=== PATIENT | male | born 2005 | race African-American/Black ===

== ENCOUNTER 2025-10-01 07:42 | Emergency (ER) | payer OTHER ==
[~2025-10-01] VITALS: Ht 180.3 cm; Wt 75.0 kg
[2025-10-01 07:44] VITALS: BP 137/95; TEMP 97.9
[2025-10-01] MEDS: IPRATROPIUM/ALBUTEROL 0.5-3(2.5)MG/3ML NEB HHN ONE (08:58)
[2025-10-01 09:00] VITALS: PULSE 90; RESP 20; O2SAT 96
[2025-10-01] MEDS ORDERED: ALBU90AE INH (09:16)
[2025-10-01] MEDS ORDERED: P50 MT (09:16)
[2025-10-01] MEDS: PREDNISONE 20MG TABLET PO ONE (09:31)
== END 2025-10-01 09:33 | disposition home or self-care (01) ==
LOC: ER 08:03
DX: J45.901 Unspecified asthma with (acute) exacerbation (principal)
CPT/HCPCS: 94640; 99283; J7512; Z7610 ×2; 94664